=== PATIENT | female | born 1955 | race Two or more races ===

== ENCOUNTER → 2020-11-01 | Outpatient (CLI) | payer OTHER ==
[~2020-11-01] MED LIST: ASPI325T25 PO
[2020-11-01 09:11] LABS: Basophils # (auto) 0.1 10 ^3/uL (0-0.2); Basophils % (auto) 0.9 % (0.0-2.0); Eosinophils # (auto) 0.1 10 ^3/uL (0-0.8); Eosinophils % (auto) 1.4 % (0.0-7.0); Hematocrit 43.2 % (36.0-46.0); Hemoglobin 14.7 g/dL (12.2-16.2); Lymphocytes # (auto) 2.8 10 ^3/uL (0.4-5.4); Lymphocytes % (auto) 35.2 % (10.0-50.0); Mean Corpuscular Hemoglobin 30.3 pg (28.0-32.0); Mean Corpuscular Hgb Conc. 33.9 g/dL (32.0-36.0); Mean Corpuscular Volume 89.3 fL (80.0-100.0); Monocytes # (auto) 0.4 10 ^3/uL (0-1.3); Monocytes % (auto) 5.4 % (0.0-12.0); Neutrophils # (auto) 4.5 10 ^3/uL (1.6-8.6); Neutrophils % (auto) 57.1 % (37.0-80.0); Nucleated Red Blood Cells % 0.1 %; Platelet Count (auto) 290 10^3/uL (140-450); Red Blood Cells 4.84 10^6/uL (4.0-5.20); Red Cell Distribution Width 13.1 % (11.8-14.3); White Blood Cell 7.9 10^3/uL (4.4-10.8)
[2020-11-01 09:25] LABS: Urine Bacteria MOD /hpf (None Seen); Urine Blood Negative /uL (Negative); Urine Mucus FEW (None Seen); Urine Specific Gravity 1.018 (1.001-1.035); Urine WBC 13 /hpf (0 - 5)
[2020-11-01 09:56] LABS: Potassium 4.2 mmol/L (3.5-5.1)
[2020-11-01 10:08] LABS: Bilirubin, Total 0.6 mg/dL (0.2-1.0); Calcium 9.2 mg/dL (8.5-10.1); Total Protein 7.2 g/dL (6.4-8.2)
== END | disposition home or self-care (01) ==
LOC: LAB 08:53
PROVIDERS: ATTEND Internal Medicine
DX: E11.9 Type 2 diabetes mellitus without complications (principal); I10 Essential (primary) hypertension; E78.5 Hyperlipidemia, unspecified; R10.9 Unspecified abdominal pain
CPT/HCPCS: 36415; 80053; 80061; 81001; 82043; 83036; 85025

== ENCOUNTER → 2020-11-24 | Outpatient (CLI) | payer OTHER | END | disposition home or self-care (01) | LOC: LAB 09:22 | PROVIDERS: ATTEND Internal Medicine | DX: R13.10 Dysphagia, unspecified (principal) | CPT/HCPCS: 36415; 82565; 84520 ==

== ENCOUNTER → 2023-08-04 | Outpatient (CLI) | payer OTHER ==
[2023-08-04 08:50] LABS: Basophils # (auto) 0.1 10 ^3/uL (0-0.2); Basophils % (auto) 0.7 % (0.0-2.0); Eosinophils # (auto) 0.1 10 ^3/uL (0-0.8); Eosinophils % (auto) 1.6 % (0.0-7.0); Hematocrit 41.8 % (36.0-46.0); Hemoglobin 13.9 g/dL (12.2-16.2); Lymphocytes % (auto) 35.7 % (10.0-50.0); Mean Corpuscular Hemoglobin 29.8 pg (28.0-32.0); Mean Corpuscular Hgb Conc. 33.2 g/dL (32.0-36.0); Mean Corpuscular Volume 89.7 fL (80.0-100.0); Monocytes # (auto) 0.4 10 ^3/uL (0-1.3); Monocytes % (auto) 5.4 % (0.0-12.0); Neutrophils # (auto) 4.8 10 ^3/uL (1.6-8.6); Neutrophils % (auto) 56.6 % (37.0-80.0); Nucleated Red Blood Cells % 0.1 %; Red Blood Cells 4.66 10^6/uL (4.0-5.20); Red Cell Distribution Width 13.1 % (11.8-14.3); White Blood Cell 8.4 10^3/uL (4.4-10.8)
[2023-08-04 09:19] LABS: Urine Bacteria MOD /hpf (None Seen); Urine Blood 1+ /uL (Negative); Urine Clarity Clear (Clear); Urine Color Colorless (Yellow); Urine Mucus FEW (None Seen); Urine Protein, UAD Negative (Negative); Urine Specific Gravity 1.017 (1.001-1.035); Urine Urobilinogen Normal (Negative); Urine WBC 18 /hpf (0 - 5)
[2023-08-04 09:21] LABS: Creatinine, Urine 85.62 mg/dL (30.0-125.0)
[2023-08-04 09:25] LABS: Alanine Aminotransferase 21 U/L (7-40); Albumin 4.6 g/dL (3.2-4.8); Alkaline Phosphatase 81 U/L (46-116); Anion Gap 6 (5-15); Aspartate Aminotransferase 13 U/L (13-40); BUN/Creatinine Ratio 12.5 (10.0-20.0); Blood Urea Nitrogen 10 mg/dL (9-23); Calcium 10.1 mg/dL (8.5-10.1); Carbon Dioxide 27 mmol/L (20-30); Chloride 106 mmol/L (98-107); Cholesterol 188 mg/dL (< 200); Glucose 103 mg/dL (74-106); HDL Cholesterol 55 mg/dL (40-59); LDL Cholesterol 114 mg/dL (< 100); Potassium 4.5 mmol/L (3.5-5.1); Sodium 139 mmol/L (136-145); Triglycerides 189 mg/dL (< 150)
[2023-08-04 09:35] LABS: Bilirubin, Total 0.7 mg/dL (0.2-1.0)
[2023-08-04 10:31] LABS: Uric Acid 6.2 mg/dL (3.1-7.8)
== END | disposition home or self-care (01) ==
LOC: LAB 08:37
PROVIDERS: ATTEND Internal Medicine
DX: E78.5 Hyperlipidemia, unspecified (principal); R73.03 Prediabetes
CPT/HCPCS: 36415; 80053; 80061; 81001; 82043; 82570; 83036; 84550; 85025

== ENCOUNTER 2025-01-04 08:54 | Outpatient (CLI) | payer OTHER ==
[2025-01-04 09:06] LABS: Urine Bacteria None Seen /hpf (None Seen)
[2025-01-04 09:19] LABS: Urine Blood 1+ /uL (Negative); Urine Clarity Clear (Clear); Urine Color Light-Yellow (Yellow); Urine Mucus FEW (None Seen); Urine Protein, UAD Negative (Negative); Urine Specific Gravity 1.018 (1.001-1.035); Urine Squamous Epithelial Cell FEW /hpf (<5); Urine Urobilinogen Normal (Negative); Urine WBC 19 /HPF (0-5); Urine pH 5.5 (5.0-9.0)
[2025-01-04 09:21] LABS: Basophils # (auto) 0.1 10 ^3/uL (0-0.2); Basophils % (auto) 0.8 % (0.0-2.0); Eosinophils # (auto) 0.5 10 ^3/uL (0-0.8); Eosinophils % (auto) 6.7 % (0.0-7.0); Hematocrit 42.3 % (36.0-46.0); Hemoglobin 14.3 g/dL (12.2-16.2); Lymphocytes # (auto) 2.7 10 ^3/uL (0.4-5.4); Lymphocytes % (auto) 34.7 % (10.0-50.0); Mean Corpuscular Hemoglobin 30.1 pg (28.0-32.0); Mean Corpuscular Hgb Conc. 33.8 g/dL (32.0-36.0); Mean Corpuscular Volume 89.3 fL (80.0-100.0); Monocytes # (auto) 0.5 10 ^3/uL (0-1.3); Monocytes % (auto) 6.7 % (0.0-12.0); Neutrophils % (auto) 51.1 % (37.0-80.0); Nucleated Red Blood Cells % 0.1 %; Platelet Count (auto) 292 10^3/uL (140-450); Red Blood Cells 4.73 10^6/uL (4.0-5.20); Red Cell Distribution Width 13.3 % (11.8-14.3); White Blood Cell 7.9 10^3/uL (4.4-10.8)
[2025-01-04 09:35] LABS: Alanine Aminotransferase 20 U/L (7-40); Albumin 4.6 g/dL (3.2-4.8); Alkaline Phosphatase 91 U/L (46-116); Anion Gap 7 (5-15); Aspartate Aminotransferase 18 U/L (<34); BUN/Creatinine Ratio 18.1 (10.0-20.0); Blood Urea Nitrogen 15 mg/dL (9-23); Calcium 10.1 mg/dL (8.7-10.4); Carbon Dioxide 28 mmol/L (20-31); Chloride 106 mmol/L (98-107); Creatinine, Urine 106.06 mg/dL (30.0-125.0); Potassium 4.6 mmol/L (3.5-5.1); Sodium 141 mmol/L (136-145)
[2025-01-04 09:36] LABS: Bilirubin, Total 0.7 mg/dL (0.2-1.0); Cholesterol 189 mg/dL (< 200); HDL Cholesterol 54 mg/dL (40-59)
[2025-01-04 09:43] LABS: Glucose 127 mg/dL (74-106); LDL Cholesterol 117 mg/dL (< 100); Triglycerides 242 mg/dL (< 150)
== END 2025-01-04 17:00 | disposition home or self-care (01) ==
LOC: LAB 08:54
PROVIDERS: ATTEND Internal Medicine
DX: I10 Essential (primary) hypertension (principal); E78.5 Hyperlipidemia, unspecified; R73.03 Prediabetes; Z00.00 Encounter for general adult medical examination without abnormal findings
CPT/HCPCS: 36415; 80053; 80061; 81001; 82043; 82570; 83036; 84443; 85025

== ENCOUNTER 2025-01-04 10:17 | Outpatient (CLI) | payer OTHER | END 2025-01-04 17:00 | disposition home or self-care (01) | LOC: LAB 10:17 | PROVIDERS: ATTEND Internal Medicine | DX: I10 Essential (primary) hypertension (principal); E78.5 Hyperlipidemia, unspecified; R73.03 Prediabetes; Z12.11 Encounter for screening for malignant neoplasm of colon | CPT/HCPCS: 82270 ==

== ENCOUNTER 2025-01-25 12:36 | Inpatient (IN) | payer OTHER ==
[~2025-01-25] VITALS: Ht 165.1 cm; Wt 97.6 kg
[2025-01-25 13:20] VITALS: PULSE 82
--- NOTE | 2025-01-25 14:00 | ED.PDOC ---
History of Present Illness HPI Comments 69-year-old female presents with a chief complaint of headache and left-sided numbness x onset 0400 this morning. Patient mentions that starting at 0400 this morning she has been experiencing symptoms of high blood pressure. Patient mentions that her BP at home was in the 200s, BP in triage was 174/79. Patient reports a headache that is localized to the front and back of her head. Patient also has L eye redness that started along with the high blood pressure this morning. Patient states that she is also experiencing numbness to her left face since 0400 this morning, but denies any vision changes or focal weakness. 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 Family History Family History: Unknown Social History Smoker: Non-Smoker Alcohol: Denies ETOH Use Drugs: Denies Drug Use Lives In: Home Constitutional: denies: chills, diaphoresis, fatigue, fever, malaise, sweats, weakness, others EENTM: reports: eye redness; denies: blurred vision, double vision, ear bleeding, ear discharge, ear drainage, ear pain, ear ringing, eye pain, hearing loss, mouth pain, mouth swelling, nasal discharge, nose bleeding, nose conges tion, nose pain, photophobia, tearing, throat pain, throat swelling, voice changes, others Respiratory: denies: cough, hemoptysis, orthopnea, SOB at rest, shortness of breath, SOB with excertion, stridor, wheezing, others Cardiovascular: denies: chest pain, dizzy spells, diaphoresis, Dyspnea on exertion, edema, irregular heart beat, left arm pain, lightheadedness, palpitations, PND, syncope, others Gastrointestinal: denies: abdomen distended, abdominal pain, blood streaked bowels, constipated, diarrhea, dysphagia, difficulty swallowing, hematemesis, melena, nausea, poor appetite, poor fluid intake, rectal bleeding, rectal pain, vomiting, others Genitourinary: denies: abnormal vagina bleeding, burning, dyspareunia, dysuria, flank pain, frequency, hematuria, incontinence, pain, , vagina disc harge, urgency, others Neurological: reports: headache, left sided numbness; denies: dizziness, fainting, left sided weakness, numbness, paresthesia, pre-existing deficit, right sided numbness, right sided weakness, seizure, speech problems, tingling, tremors, weakness, others Musculoskeletal: denies: back pain, gout, joint pain, joint swelling, muscle pain, muscle stiffness, neck pain, others Integumetry: denies: bruises, change in color, change in hair/nails, dryness, laceration, lesions, lumps, rash, wounds, others Allergic/Immunocompromised: denies: Difficulty Healing, Frequent Infections, Hives, Itching, others Hematologic/Lymphatic: denies: anemia, blood clots, easy bleeding, easy bruising, swollen glands, others Endocrine: denies: excessive hunger, excessive sweating, excessive thirst, excessive urination, flushing, intolerance to cold, intolerance to heat, unexplained weight gain, unexplained weight loss, others Psychiatric: denies: anxiety, bipolar disorder, depression, hopeless, panic disorder, schizophrenia, sleepless, suicidal, others All Other Systems: Reviewed and Negative Physical Exam General Appearance: No Apparent Distress, Obese HEENT: PERRL/EOMI, Other (Pupils and face symmetric. Moist mucous membranes. Left eye subconjunctival hemorrhage.) Neck: Full Range of Motion, Non-Tender, Normal Inspection, Supple Respiratory: Lungs Clear, No Accessory Muscle Use, No Respiratory Distress, Normal Breath Sounds Cardiovascular: No Edema, No JVD, Regular Rate/Rhythm Breast Exam: Deferred Gastrointestinal: Non Tender, Soft Genitalia: Deferred Pelvic: Deferred Rectal: Deferred Extremities: Normal inspection, Normal range of motion, Non-tender, No pedal edema Neurologic: Alert (Oriented x4), No Motor Deficits, Normal Affect, Normal Mood, Other (Ambulatory. Subjective diminished light touch sensation over the left face.) Cerebellar Function: NOT DONE Reflexes: NOT DONE Skin: Dry, Normal Color, Warm Lymphatic: NOT DONE Was a procedure done? Was a procedure done?: No EKG EKG : Comments Sinus rhythm, rate 87, normal intervals, normal axis, normal QRS, no ST/T change. Differential Dx Considerations may include: CVA, TIA, hypertensive encephalopathy, hypertensive urgency/emergency, intracranial mass lesion, among others X-Ray, Labs, Meds, VS Vital Signs Date Time Temp Pulse Resp B/P (MAP) Pulse Ox O2 Delivery O2 Flow Rate FiO2 01/25/25 17:02 163/72 01/25/25 16:57 80 16 163/82 (109) 98 01/25/25 13:33 87 01/25/25 13:31 98.1 82 18 174/79 (110) 96 98.1 01/25/25 13:20 82 Room Air* 0 21 Lab Test 01/25/25 15:18 01/25/25 14:35 01/25/25 13:56 Range/Units Urine Color Light-yellow Yellow Urine Clarity Clear Clear Urine pH 6.0 5.0-9.0 Urine Specific [place] 1.023 1.001-1.035 Urine Protein Negative Negative Urine Ketones Negative Negative Urine Blood Trace H Negative /uL Urine Nitrite Negative Negative Urine Bilirubin Negative Negative Urine Urobilinogen Normal Negative mg/dL Urine Leukocyte Esterase 1+ Negative /uL Urine RBC 6 0 - 4 /hpf Urine Microscopic WBC 4 0-5 /HPF Urine Squamous Epithelial Cells Few <5 /hpf Urine Bacteria None seen None Seen /hpf Urine Glucose Normal Normal mg/dL Troponin I High Sensitivity < 3 L < 3 L </=34 ng/L White Blood Count 8.9 4.4-10.8 10^3/uL Red Blood Count 5.02 4.0-5.20 10^6/uL Hemoglobin 14.8 12.2-16.2 g/dL Hematocrit 44.9 36.0-46.0 % Mean Corpuscular Volume 89.5 80.0-100.0 fL Mean Corpuscular Hemoglobin 29.5 28.0-32.0 pg Mean Corpuscular Hemoglobin Concent 33.0 32.0-36.0 g/dL Red Cell Distribution Width 13.5 11.8-14.3 % Platelet Count 307 140-450 10^3/uL Mean Platelet Volume 7.2 6.9-10.8 fL Neutrophils (%) (Auto) 56.0 37.0-80.0 % Lymphocytes (%) (Auto) 31.4 10.0-50.0 % Monocytes (%) (Auto) 6.4 0.0-12.0 % Eosinophils (%) (Auto) 5.6 0.0-7.0 % Basophils (%) (Auto) 0.6 0.0-2.0 % Neutrophils # (Auto) 5.0 1.6-8.6 10 ^3/uL Lymphocytes # (Auto) 2.8 0.4-5.4 10 ^3/uL Monocytes # (Auto) 0.6 0-1.3 10 ^3/uL Eosinophils # (Auto) 0.5 0-0.8 10 ^3/uL Basophils # (Auto) 0.1 0-0.2 10 ^3/uL Nucleated Red Blood Cells 0.2 % Prothrombin Time 10.4 9.3-11.8 sec Prothrombin Time INR 0.98 0.9-1.15 Activated Partial Thromboplast Time 24.8 24.5-34.5 SEC Sodium Level 140 136-145 mmol/L Potassium Level 4.2 3.5-5.1 mmol/L Chloride Level 103 98-107 mmol/L Carbon Dioxide Level 28 20-31 mmol/L Anion Gap 9 5-15 Blood Urea Nitrogen 17 9-23 mg/dL Creatinine 0.78 0.550-1.02 mg/dL Glomerular Filtration Rate Calc 82 >90 mL/min BUN/Creatinine Ratio 21.8 H 10.0-20.0 Serum Glucose 153 H 74-106 mg/dL Calcium Level 9.9 8.7-10.4 mg/dL Total Bilirubin 0.5 0.2-1.0 mg/dL Aspartate Amino Transferase (AST) 22 13-40 U/L Alanine Aminotransferase (ALT) 30 7-40 U/L Alkaline Phosphatase 100 46-116 U/L B-Type Natriuretic Peptide 36.33 0-100 pg/mL Total Protein 6.9 5.7-8.2 g/dL Albumin 4.8 3.2-4.8 g/dL Current Medications Medications (Trade) Dose Ordered Sig/Rona Route Start Time Stop Time Status Last Admin Acetaminophen/ Hydrocodone Bitart (Manning 5/325MG Tab) 1 tab ONCE ONCE PO 01/25/25 17:05 01/25/25 17:06 DC 01/25/25 17:17 PROCEDURE(s): HWOCT - HEAD WITHOUT CONTRAST REASON: high bp headache ORDER NUMBER(s): [id number], ACCESSION NUMBER(s): [id number] CT HEAD WITHOUT CONTRAST INDICATION: high bp headache EXAM DATE: 01/25/2025 01:37 PM COMPARISON: None RADIATION DOSE: CTDIvol: 55 mGy, DLP: 1091 mGy*cm PROCEDURE: CT scans of the head were obtained from the vertex to the skull base. Sagittal and coronal reconstructions were provided. All CT scans at this medical facility are performed using dose modulation techniques as appropriate to a performed exam including the following: Automated exposure control was utilized; adjustment of the MA and/or KV according to patient size; and use of iterative reconstruction technique. FINDINGS: There is sulcal and ventricular prominence. The brainshows normal morphology and matt-white matter differentiation, without intracranial hemorrhage, extra-axial fluid collection, mass effect or acute large vessel infarct. The ventricles are normal in size. The basal cisterns are patent. The skull and visible facial bones are intact. The paranasal sinuses, mastoid air cells and middle ear cavities are well-aerated. The soft tissues of the scalp are unremarkable. IMPRESSION: No acute intracranial abnormality. EDURE(s): CXR2 - CHEST TWO VIEWS ROUTINE REASON: hi bp ORDER NUMBER(s): [id number], ACCESSION NUMBER(s): [id number] XY CHEST TWO VIEWS ROUTINE, HISTORY: hi bp COMPARISON: None None TECHNICAL DATA: 2 view of the chest was obtained. FINDINGS: Lines and tubes: None Cardiomediastinal silhouette: normal Pulmonary vasculature: normal Lung expansion: normal Lung airspace: normal Lung interstitium: normal Pleura: normal Pneumothorax: no Bones: Unremarkable Other: no IMPRESSION: No acute intrathoracic abnormality. ATED BY: KAM WAGNER MD DICTATED DATE/TIME: 01/25/25 1409 X-Ray, Labs, Meds, VS Comment 69-year-old female with a history of diabetes, hypertension, dyslipidemia presenting complaining of elevated blood pressure, headache, left eye subconjunctival hemorrhage and left facial numbness Vitals remarkable for BP 174/79 Exam remarkable for left subconjunctival hemorrhage. Subjective diminished light touch sensation left face Rhythm strip independently interpreted by me: Sinus rhythm, rate 87, no ectopy. CT head unremarkable Chest x-ray unremarkable CBC, CMP, BNP and 2 serial troponins unremarkable. UA abnormal consistent with possible UTI Patient treated with the following in the ED: Manning 5/325 mg for headache. Rocephin 1 g IV. Patient's blood pressure was in the 160s systolic on re-evaluation, so no additional blood pressure lowering medication was administered. On re-evaluation, there has been no new neurologic change. Vitals are otherwise stable. Plan is to admit the patient for brain MRI and neuro evaluation. Time of 1ST Reevaluation: 13:57 Reevaluation 1ST: Unchanged Patient Education/Counseling: Diagnosis, Treatment Family Education/Counseling: No Family Present SEPSIS Sepsis Screen Date sepsis recognized/suspect: Jan 25, 2025 Time Sepsis recognized/suspect: 1320 Recent Procedure: No On Antibiotic Therapy: No Respiratory Rate >20: No Heart Rate >90: No Temp<36 C (96.8 F) or >38.3 C: No SBP <90 or MAP <65 mmHG: No New Acute Mental Status Change: No Is the patient on CPAP, BIPAP,: No Physician Orders Chest Two Views Routine (01/25/25 13:34) Electrocardigram (01/25/25 13:34) Head Without Contrast (01/25/25 13:34) Ceftriaxone 1gm/50ml D5w (Rocephin) (01/25/25 17:15) Vital Signs Date Time Temp Pulse Resp B/P (MAP) Pulse Ox O2 Delivery O2 Flow Rate FiO2 01/25/25 17:02 163/72 01/25/25 16:57 80 16 163/82 (109) 98 01/25/25 13:33 87 01/25/25 13:31 98.1 82 18 174/79 (110) 96 98.1 01/25/25 13:20 82 Room Air* 0 21 Laboratory Tests Test 01/25/25 13:56 White Blood Count 8.9 10^3/uL (4.4-10.8) Medications Medications Dose Ordered Sig/Rona Route Start Time Stop Time Status Last Admin Dose Admin Acetaminophen/ Hydrocodone Bitart 1 tab ONCE ONCE PO 01/25/25 17:05 01/25/25 17:06 DC 01/25/25 17:17 Departure 1 Departure Time of Disposition: 16:30 Impression: Primary Impression: Hypertensive urgency Additional Impressions: Headache Qualified Codes: R51.9 - Headache, unspecified Left facial numbness UTI (urinary tract infection) Qualified Codes: N39.0 - Urinary tract infection, site not specified Disposition: ADMITTED INPATIENT Admit to: Tele Condition: Guarded Critical Care Note Critical Care Time?: No Stability Stability form required: No Heart Score Heart Score: Heart Score Response (Comments) Value History N/A 0 EKG N/A 0 Age N/A 0 Risk Factors N/A 0 Troponin N/A 0 Total 0 I personally scribed for MG ROMERO MD ([email or web address]) on 01/25/25 at 14:00. Electronically submitted by Drake Delgadillo ([email or web address]). MG ROMERO MD Jan 25, 2025 14:00
--- NOTE | 2025-01-25 14:07 | DVH ---
CT HEAD WITHOUT CONTRAST INDICATION: high bp headache EXAM DATE: 01/25/2025 01:37 PM COMPARISON: None RADIATION DOSE: CTDIvol: 55 mGy, DLP: 1091 mGy*cm PROCEDURE: CT scans of the head were obtained from the vertex to the skull base. Sagittal and coronal reconstructions were provided. All CT scans at this medical facility are performed using dose modulation techniques as appropriate t o a performed exam including the following: Automated exposure control was utilized; adjustment of th e MA and/or KV according to patient size; and use of iterative reconstruction technique. FINDINGS: There is sulcal and ventricular prominence. The brainshows normal morphology and matt-whi te matter differentiation, without intracranial hemorrhage, extra-axial fluid collection, mass effect or acute large vessel infarct. The ventricles are normal in size. The basal cisterns are patent. The skull and visible facial bones are intact. The paranasal sinuses, mastoid air cells and middle ear c avities are well-aerated. The soft tissues of the scalp are unremarkable. IMPRESSION: No acute intracranial abnormality.
--- NOTE | 2025-01-25 14:11 | DVH ---
XY CHEST TWO VIEWS ROUTINE, HISTORY: hi bp COMPARISON: None None TECHNICAL DATA: 2 view of the chest was obtained. FINDINGS: Lines and tubes: None Cardiomediastinal silhouette: normal Pulmonary vasculature: normal Lung expansion: normal Lung airspace: normal Lung interstitium: normal Pleura: normal Pneumothorax: no Bones: Unremarkable Other: no IMPRESSION: No acute intrathoracic abnormality.
[2025-01-25 14:13] LABS: Hematocrit 44.9 % (36.0-46.0); Hemoglobin 14.8 g/dL (12.2-16.2); Mean Corpuscular Hemoglobin 29.5 pg (28.0-32.0); Mean Corpuscular Volume 89.5 fL (80.0-100.0); Nucleated Red Blood Cells % 0.2 %
[2025-01-25 14:31] LABS: INR 0.98 (0.9-1.15); Partial Thromboplastin Time 24.8 SEC (24.5-34.5); Prothrombin Time 10.4 sec (9.3-11.8)
[2025-01-25 14:35] LABS: Alanine Aminotransferase 30 U/L (7-40); Albumin 4.8 g/dL (3.2-4.8); Alkaline Phosphatase 100 U/L (46-116); Anion Gap 9 (5-15); BUN/Creatinine Ratio 21.8 (10.0-20.0); Bilirubin, Total 0.5 mg/dL (0.2-1.0); Blood Urea Nitrogen 17 mg/dL (9-23); Calcium 9.9 mg/dL (8.7-10.4); Carbon Dioxide 28 mmol/L (20-31); Chloride 103 mmol/L (98-107); Potassium 4.2 mmol/L (3.5-5.1); Sodium 140 mmol/L (136-145); Total Protein 6.9 g/dL (5.7-8.2)
[2025-01-25 14:36] LABS: Glucose 153 mg/dL (74-106)
[2025-01-25 15:32] LABS: Urine Protein, UAD Negative (Negative)
[2025-01-25] MEDS: hydrALAZINE HCL 20 MG/ML VL IV ONE (17:02)
[2025-01-25] MEDS: HYDROcodone-ACET 5/325MG TAB PO ONE (17:17)
[2025-01-25] MEDS: cefTRIAXone 1GM/50ML D5W 50 ML IV ONE (18:05)
[2025-01-25] MEDS ORDERED: ACETAMINOPHEN 325 MG TAB PO PRN (20:00)
[2025-01-25] MEDS ORDERED: ONDANSETRON HCL 4 MG/2 ML VIAL IV PRN (20:00)
[2025-01-25] MEDS ORDERED: DEXTROSE (50%) 50ML SYRG IV PRN (20:00)
[2025-01-25 21:00] VITALS: BP 160/97; PULSE 78; RESP 18; TEMP 97.7; O2SAT 97
[2025-01-25 21:07] VITALS: PULSE 78; RESP 18; O2SAT 97
[2025-01-25] MEDS ORDERED: SIMV10TA20 PO (21:15)
[2025-01-25] MEDS ORDERED: ENAL1TAB47 PO (21:15)
[2025-01-25] MEDS ORDERED: METF-371 PO (21:15)
[2025-01-25 21:17] VITALS: BP 160/97; PULSE 78; RESP 0; TEMP 97.7; O2SAT 97
--- NOTE | 2025-01-25 21:38 | DVHHP2 ---
History of Present Illness Reason for Visit: Hypertension History of Present Illness 69-year-old female presents for evaluation of hypertension. Patient reports that since yesterday her blood pressure was running in the 200s. Today she developed dizziness with left facial numbness and occipital headache. Patient states the facial numbness has subsided and has a mild headache. Denies unilateral weakness or slurred speech. No blurred vision. No chest pain. Past Medical History Diabetes mellitus, dyslipidemia, hypertension, cancer Past Surgical History Hysterectomy, cholecystectomy Family History Noncontributory Smoke: No ALCOHOL: none Drugs: None Lives: with Family Review of Systems Review of Systems Review of systems are currently negative otherwise addressed in HPI. Allergies: Coded Allergies: NO KNOWN ALLERGIES (Unverified , 11/24/15) Medications Current Medications Medications Dose Ordered Sig/Rona Route Start Time Stop Time Status Last Admin Dose Admin Clonidine HCl 0.1 mg Q6HP PRN PO 01/25/25 20:00 Enalapril Maleate 20 mg DAILY PO 01/26/25 10:00 Ceftriaxone Sodium 50 ml @ 100 mls/hr DAILY@09 IV 01/26/25 09:00 Diagnostic Test (Pha) 1 strip ACHS 01/25/25 22:00 Insulin Human Regular ACHS SC 01/25/25 22:00 Dextrose 50 ml UD PRN IV 01/25/25 20:00 Ondansetron HCl 4 mg Q4HP PRN IV 01/25/25 20:00 Enoxaparin Sodium 40 mg DAILY SC 01/26/25 10:00 Acetaminophen 650 mg Q6HP PRN PO 01/25/25 20:00 Exam Vital Signs Vital Signs Date Time Temp Pulse Resp B/P (MAP) Pulse Ox O2 Delivery O2 Flow Rate FiO2 01/25/25 21:17 97.7 78 0 160/97 (118) 97 97.7 01/25/25 19:12 Room Air 01/25/25 13:20 0 21 Exam Gen: 69-year-old female in mild distress Skin: Warm, dry, normal color and texture, no rash. HEENT: Normocephalic atraumatic, mucous membranes moist and pink. Neck: Cervical and supraclavicular nodes normal without enlargement, trachea is midline, thyroid gland is normal without masses. Pulmonary: Clear to auscultation and percussion bilaterally. Cardiac: Regular rate and rhythm. No murmur Abdomen: Soft, nontender, nondistended, bowel sounds present all 4 quadrants, no guarding, no rigidity, no organomegaly. Extremities: No cyanosis, clubbing, no edema Neuro: Cranial nerves II through XII grossly intact, normal affect and speech, no focal motor deficits. Labs/Xrays ORDERING PHYSICIAN: MG ROMERO MD PROCEDURE(s): CXR2 - CHEST TWO VIEWS ROUTINE REASON: hi bp ORDER NUMBER(s): [id number], ACCESSION NUMBER(s): [id number] XY CHEST TWO VIEWS ROUTINE, HISTORY: hi bp COMPARISON: None None TECHNICAL DATA: 2 view of the chest was obtained. FINDINGS: Lines and tubes: None Cardiomediastinal silhouette: normal Pulmonary vasculature: normal Lung expansion: normal Lung airspace: normal Lung interstitium: normal Pleura: normal Pneumothorax: no Bones: Unremarkable Other: no IMPRESSION: No acute intrathoracic abnormality. RING PHYSICIAN: MG ROMERO MD PROCEDURE(s): HWOCT - HEAD WITHOUT CONTRAST REASON: high bp headache ORDER NUMBER(s): [id number], ACCESSION NUMBER(s): [id number] CT HEAD WITHOUT CONTRAST INDICATION: high bp headache EXAM DATE: 01/25/2025 01:37 PM COMPARISON: None RADIATION DOSE: CTDIvol: 55 mGy, DLP: 1091 mGy*cm PROCEDURE: CT scans of the head were obtained from the vertex to the skull base. Sagittal and coronal reconstructions were provided. All CT scans at this medical facility are performed using dose modulation techniques as appropriate to a performed exam including the following: Automated exposure control was utilized; adjustment of the MA and/or KV according to patient size; and use of iterative reconstruction technique. FINDINGS: There is sulcal and ventricular prominence. The brainshows normal morphology and matt-white matter differentiation, without intracranial hemorrhage, extra-axial fluid collection, mass effect or acute large vessel infarct. The ventricles are normal in size. The basal cisterns are patent. The skull and visible facial bones are intact. The paranasal sinuses, mastoid air cells and middle ear cavities are well-aerated. The soft tissues of the scalp are unremarkable. IMPRESSION: No acute intracranial abnormality. Labs Test 01/25/25 15:18 01/25/25 14:35 01/25/25 13:56 Range/Units Urine Color Light-yellow Yellow Urine Clarity Clear Clear Urine pH 6.0 5.0-9.0 Urine Specific [place] 1.023 1.001-1.035 Urine Protein Negative Negative Urine Ketones Negative Negative Urine Blood Trace H Negative /uL Urine Nitrite Negative Negative Urine Bilirubin Negative Negative Urine Urobilinogen Normal Negative mg/dL Urine Leukocyte Esterase 1+ Negative /uL Urine RBC 6 0 - 4 /hpf Urine Microscopic WBC 4 0-5 /HPF Urine Squamous Epithelial Cells Few <5 /hpf Urine Bacteria None seen None Seen /hpf Urine Glucose Normal Normal mg/dL Troponin I High Sensitivity < 3 L </=34 ng/L White Blood Count 8.9 4.4-10.8 10^3/uL Red Blood Count 5.02 4.0-5.20 10^6/uL Hemoglobin 14.8 12.2-16.2 g/dL Hematocrit 44.9 36.0-46.0 % Mean Corpuscular Volume 89.5 80.0-100.0 fL Mean Corpuscular Hemoglobin 29.5 28.0-32.0 pg Mean Corpuscular Hemoglobin Concent 33.0 32.0-36.0 g/dL Red Cell Distribution Width 13.5 11.8-14.3 % Platelet Count 307 140-450 10^3/uL Mean Platelet Volume 7.2 6.9-10.8 fL Neutrophils (%) (Auto) 56.0 37.0-80.0 % Lymphocytes (%) (Auto) 31.4 10.0-50.0 % Monocytes (%) (Auto) 6.4 0.0-12.0 % Eosinophils (%) (Auto) 5.6 0.0-7.0 % Basophils (%) (Auto) 0.6 0.0-2.0 % Neutrophils # (Auto) 5.0 1.6-8.6 10 ^3/uL Lymphocytes # (Auto) 2.8 0.4-5.4 10 ^3/uL Monocytes # (Auto) 0.6 0-1.3 10 ^3/uL Eosinophils # (Auto) 0.5 0-0.8 10 ^3/uL Basophils # (Auto) 0.1 0-0.2 10 ^3/uL Nucleated Red Blood Cells 0.2 % Prothrombin Time 10.4 9.3-11.8 sec Prothrombin Time INR 0.98 0.9-1.15 Activated Partial Thromboplast Time 24.8 24.5-34.5 SEC Sodium Level 140 136-145 mmol/L Potassium Level 4.2 3.5-5.1 mmol/L Chloride Level 103 98-107 mmol/L Carbon Dioxide Level 28 20-31 mmol/L Anion Gap 9 5-15 Blood Urea Nitrogen 17 9-23 mg/dL Creatinine 0.78 0.550-1.02 mg/dL Glomerular Filtration Rate Calc 82 >90 mL/min BUN/Creatinine Ratio 21.8 H 10.0-20.0 Serum Glucose 153 H 74-106 mg/dL Calcium Level 9.9 8.7-10.4 mg/dL Total Bilirubin 0.5 0.2-1.0 mg/dL Aspartate Amino Transferase (AST) 22 13-40 U/L Alanine Aminotransferase (ALT) 30 7-40 U/L Alkaline Phosphatase 100 46-116 U/L B-Type Natriuretic Peptide 36.33 0-100 pg/mL Total Protein 6.9 5.7-8.2 g/dL Albumin 4.8 3.2-4.8 g/dL Thyroid Stimulating Hormone (TSH) 1.59 0.55-4.78 uIU/mL SEPSIS Sepsis Screen Date sepsis recognized/suspect: Jan 25, 2025 Time Sepsis recognized/suspect: 1912 Recent Procedure: No On Antibiotic Therapy: No Respiratory Rate >20: No Heart Rate >90: No Temp<36 C (96.8 F) or >38.3 C: No SBP <90 or MAP <65 mmHG: No New Acute Mental Status Change: No Is the patient on CPAP, BIPAP,: No Physician Orders Chest Two Views Routine (01/25/25 13:34) Electrocardigram (01/25/25 13:34) Head Without Contrast (01/25/25 13:34) Clonidine Hcl Tablet (Catapres Tablet) (01/25/25 20:00) Enalapril Tablet (Vasotec Tablet) (01/26/25 10:00) Ceftriaxone 1gm/50ml D5w (Rocephin) (01/26/25 09:00) Basic Metabolic Panel (01/26/25 04:00) Glucose Blood (Accu-Chek Comfort Curve T (01/25/25 22:00) Insulin R (Human) (Insulin R) (01/25/25 22:00) Dextrose 50% Syringe (01/25/25 20:00) Admit (01/25/25 19:57) Ondansetron Hcl (Zofran) (01/25/25 20:00) Enoxaparin Sodium (Lovenox) (01/26/25 10:00) Cardiac Diet-2gna,Lofat,Lochol (01/26/25 Breakfast) Echo 2d Mode Cardiac Dop (01/25/25 19:57) Condition: Stable (01/25/25 19:57) Acetaminophen Tablet (Tylenol Tablet) (01/25/25 20:00) Bedrest With Bathroom Privileg (01/25/25 19:57) Hepatitis B Surface Antigen (01/26/25 04:00) Hepatitis C Antibody (01/26/25 04:00) * Tax Agent Consult (01/25/25 ) Vital Signs Date Time Temp Pulse Resp B/P (MAP) Pulse Ox O2 Delivery O2 Flow Rate FiO2 01/25/25 21:17 97.7 78 0 160/97 (118) 97 97.7 01/25/25 21:00 97.7 78 18 160/97 (118) 97 97.7 01/25/25 19:12 76 20 96 Room Air 01/25/25 19:12 98.3 76 20 155/81 (105) 96 98.3 01/25/25 17:02 163/72 01/25/25 16:57 80 16 163/82 (109) 98 Laboratory Tests Test 01/25/25 13:56 White Blood Count 8.9 10^3/uL (4.4-10.8) Medications Medications Dose Ordered Sig/Rona Route Start Time Stop Time Status Last Admin Dose Admin Acetaminophen/ Hydrocodone Bitart 1 tab ONCE ONCE PO 01/25/25 17:05 01/25/25 17:06 DC 01/25/25 17:17 1 TAB Ceftriaxone Sodium 50 ml @ 100 mls/hr ONCE ONCE IV 01/25/25 17:15 01/25/25 17:58 DC 01/25/25 18:05 100 MLS/HR Assessment/Plan Assessment/Plan Assessment Hypertensive crisis Diabetes mellitus UTI Left corneal hemorrhage Plan Admit the patient to Med surge to the hospitalist Echocardiogram pending Prn antihypertensives Resume home medications Continue treatment per orders. Plan discussed with: Patient My Orders Orders - VERONICA DELGADO Procedure Category Date Status Time Clonidine Hcl Tablet PHA 01/25/25 In Process (Catapres Tablet) 20:00 Enalapril Tablet PHA 01/26/25 In Process (Vasotec Tablet) 10:00 Ceftriaxone 1gm/50ml PHA 01/26/25 In Process D5w (Rocephin) 09:00 Basic Metabolic Panel LAB 01/26/25 Verified 04:00 Glucose Blood PHA 01/25/25 In Process (Accu-Chek Comfort 22:00 Insulin R (Human) PHA 01/25/25 In Process (Insulin R) 22:00 Dextrose 50% Syringe PHA 01/25/25 In Process 20:00 Admit ADMIT 01/25/25 Transmitted 19:57 Ondansetron Hcl PHA 01/25/25 In Process (Zofran) 20:00 Enoxaparin Sodium PHA 01/26/25 In Process (Lovenox) 10:00 Cardiac DIET 01/26/25 Transmitted Diet-2gna,Lofat,Lochol Breakfast Echo 2d Mode Cardiac US 01/25/25 Logged DOP 19:57 Condition: Stable SHMUEL 01/25/25 In Process 19:57 Acetaminophen Tablet PHA 01/25/25 In Process (Tylenol Tablet) 20:00 Bedrest With Bathroom SHMUEL 01/25/25 In Process Privileg 19:57 Hepatitis B Surface LAB 01/26/25 Verified Antigen 04:00 Hepatitis C Antibody LAB 01/26/25 Verified 04:00 * Tax Agent CONS 01/25/25 Transmitted Consult Date of Service: Jan 25, 2025 Billing Provider: VERONICA DELGADO Common Visit Codes: [id number] INP/OBS CARE (HIGH) VERONICA DELGADO Jan 25, 2025 21:38
[2025-01-25 22:08] LABS: Cholesterol 166 mg/dL (< 200); HDL Cholesterol 57 mg/dL (40-59)
[2025-01-25 22:13] LABS: Triglycerides 264 mg/dL (< 150)
[2025-01-25] MEDS: InsuLIN REG 1unit/0.01ml Soln (100units/ml) SC SCH (22:20)
[2025-01-25] MEDS: ACCU-CHEK COMFORT CURVE STRIP VI SCH (22:21)
[2025-01-26] VITALS (8 sets, daily range): BP systolic 110–138; BP diastolic 48–76; PULSE 74–85; RESP 16–18; TEMP 97.3–98.2; O2SAT 91–96
[2025-01-26 07:34] LABS: Chloride 104 mmol/L (98-107); Potassium 4.0 mmol/L (3.5-5.1); Sodium 139 mmol/L (136-145)
[2025-01-26 07:35] LABS: Anion Gap 9 (5-15); Calcium 10.0 mg/dL (8.7-10.4); Carbon Dioxide 26 mmol/L (20-31)
[2025-01-26 07:40] LABS: BUN/Creatinine Ratio 23.1 (10.0-20.0); Blood Urea Nitrogen 18 mg/dL (9-23)
[2025-01-26 07:43] LABS: Glucose 129 mg/dL (74-106)
[2025-01-26] MEDS: cefTRIAXone 1GM/50ML D5W 50 ML IV SCH (09:00)
--- NOTE | 2025-01-26 09:35 | ECG ---
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
[2025-01-26 10:02] LABS: Hepatitis B Surface Antigen Negative (Negative)
[2025-01-26 10:36] LABS: Hepatitis C Antibody Negative (Negative)
[2025-01-26] MEDS: ENALAPRIL MALEATE 10 MG TAB PO SCH (10:36)
[2025-01-26] MEDS: ENOXAPARIN SOD 40 MG/0.4 ML SYRINGE SC SCH (10:37)
[2025-01-26] MEDS: LORazepam 2MG/ML-1ML VIAL IV ONE (15:32)
--- NOTE | 2025-01-26 15:33 | DVHPN2 ---
Subjective Patient denies any symptoms at this time Reviewed: Care Plan, H&P, Labs, Medications Changes from previous H/P or p: No Changes General: Per HPI Objective Vitals Vital Signs Date Time Temp Pulse Resp B/P (MAP) Pulse Ox O2 Delivery O2 Flow Rate FiO2 01/26/25 13:00 97.9 75 17 110/68 (82) 91 97.9 01/26/25 08:30 Room Air* 0 21 Intake/Output Intake and Output 01/26/25 07:00 Intake Total 250 ml Balance 250 ml Intake Oral 200 ml IV Total 50 ml # Voids 1 General Appearance: Alert, Oriented X3, Cooperative, No acute distress HEENT: PERRLA, Other (Left conjunctival hemorrhage) Lungs: Clear to auscultation, Normal air movement Cardiovascular: Normal S1, Normal S2 Abdomen: Normal bowel sounds, Soft, No tenderness, No hepatospenomegaly, No masses Musculoskeletal: Normal sensory function, Normal motor function Skin: Dry, Intact Psych/Mental Status: Mood NL Medications Current Medications Medications Dose Ordered Sig/Rona Route Start Time Stop Time Status Last Admin Dose Admin Clonidine HCl 0.1 mg Q6HP PRN PO 01/25/25 20:00 Enalapril Maleate 20 mg DAILY PO 01/26/25 10:00 01/26/25 10:36 20 MG Ceftriaxone Sodium 50 ml @ 100 mls/hr DAILY@09 IV 01/26/25 09:00 01/26/25 09:00 100 MLS/HR Diagnostic Test (Pha) 1 strip ACHS 01/25/25 22:00 01/26/25 11:30 1 STRIP Insulin Human Regular ACHS SC 01/25/25 22:00 01/26/25 12:22 2 UNITS Dextrose 50 ml UD PRN IV 01/25/25 20:00 Ondansetron HCl 4 mg Q4HP PRN IV 01/25/25 20:00 Enoxaparin Sodium 40 mg DAILY SC 01/26/25 10:00 01/26/25 10:37 40 MG Acetaminophen 650 mg Q6HP PRN PO 01/25/25 20:00 Laboratory Results Laboratory Tests 01/25/25 13:56 01/26/25 05:42 Chemistry Test 01/26/25 05:42 Calcium Level 10.0 mg/dL (8.7-10.4) Urinalysis Test 01/25/25 15:18 Urine Color Light-yellow (Yellow) Urine Clarity Clear (Clear) Urine pH 6.0 (5.0-9.0) Urine Specific [place] 1.023 (1.001-1.035) Urine Protein Negative (Negative) Urine Ketones Negative (Negative) Urine Blood Trace /uL (Negative) H Urine Nitrite Negative (Negative) Urine Bilirubin Negative (Negative) Urine Urobilinogen Normal mg/dL (Negative) Urine Leukocyte Esterase 1+ /uL (Negative) Urine RBC 6 /hpf (0 - 4) Urine Microscopic WBC 4 /HPF (0-5) Urine Squamous Epithelial Cells Few /hpf (<5) Urine Bacteria None seen /hpf (None Seen) Urine Glucose Normal mg/dL (Normal) Labs and/or images reviewed: Labs reviewed by me, Image(s) reviewed by me Assessment/Plan Assessment/Plan Impression: -hypertensive crisis -rule out CVA -diabetes mellitus -dyslipidemia -primary hypertension -left conjunctival hemorrhage Plan: -CT scan of the head negative for any acute intracranial pathology -MRI of the brain -regular insulin sliding scale -echocardiogram, pending -continue current antihypertensives, statin -reassess for discharge in a.m. Total time spent with patient discussing and formulating plan of care: 35 minutes. This medical document was created using an electronic medical record system with [employer] dictation system. Although this document has been carefully reviewed, there may still be some phonetic and typographical errors. These areas are purely typographical due to imperfections of the software programs, and do not reflect any compromise in the patient's medical care. Plan discussed with: Patient, Other (RN) My Orders Orders - ALICJA ANGULO NP Procedure Category Date Status Time Brain Head Wo Contrast MRI 01/26/25 Logged 14:14 Date of Service: Jan 26, 2025 Billing Provider: PRUDENCE VELASQUEZ Common Visit Codes: 47550-PLYVONCGJP INP/OBS CARE(HIGH) ALICJA ANGULO NP Jan 26, 2025 15:33
--- NOTE | 2025-01-26 16:36 | DVH ---
PROCEDURE: MRI BRAIN HEAD WO CONTRAST Indication: rule out CVA COMPARISON: None TECHNIQUE: Multiplanar multisequence images of the brain are obtained. FINDINGS: There is no abnormal diffusion restriction. There are mild periventricular and subcortical white cameron er T2 and FLAIR hyperintense changes. There is no intracranial hemorrhage. No extra-axial fluid colle ction, mass effect or midline shift. The ventricles are midline and normal in size. The cisterns are patent. Normal intracranial flow voids are preserved. No abnormal susceptibility signal. The sinuses and mastoids are well pneumatized. The visualized orbits are unremarkable. IMPRESSION: No acute cerebrovascular ischemia. Mild chronic microvascular ischemic changes.
[2025-01-27 01:00] VITALS: BP 143/76; PULSE 90; RESP 18; TEMP 98; O2SAT 93
[2025-01-27 05:00] VITALS: BP 100/62; PULSE 80; RESP 18; TEMP 97.7; O2SAT 97
[2025-01-27 08:00] VITALS: BP 127/78; PULSE 75; RESP 18; TEMP 98.1; O2SAT 94
--- NOTE | 2025-01-27 11:06 | DVHDS2 ---
Discharge Summary Date of Admission Jan 25, 2025 at 19:57 Date of Discharge: Jan 27, 2025 Admitting Diagnosis Hypertensive crisis Labs/Diagnostic Data: Laboratory Results Test 01/27/25 06:20 01/26/25 05:42 01/25/25 15:18 01/25/25 14:35 POC Glucose 160 mg/dl (70-106) Sodium Level 139 mmol/L (136-145) Potassium Level 4.0 mmol/L (3.5-5.1) Chloride Level 104 mmol/L (98-107) Carbon Dioxide Level 26 mmol/L (20-31) Anion Gap 9 (5-15) Blood Urea Nitrogen 18 mg/dL (9-23) Creatinine 0.78 mg/dL (0.550-1.02) Glomerular Filtration Rate Calc 82 mL/min (>90) BUN/Creatinine Ratio 23.1 (10.0-20.0) Serum Glucose 129 mg/dL (74-106) Calcium Level 10.0 mg/dL (8.7-10.4) Hepatitis B Surface Antigen Negative (Negative) Hepatitis C Antibody Negative (Negative) Urine Color Light-yellow (Yellow) Urine Clarity Clear (Clear) Urine pH 6.0 (5.0-9.0) Urine Specific [place] 1.023 (1.001-1.035) Urine Protein Negative (Negative) Urine Ketones Negative (Negative) Urine Blood Trace /uL (Negative) Urine Nitrite Negative (Negative) Urine Bilirubin Negative (Negative) Urine Urobilinogen Normal mg/dL (Negative) Urine Leukocyte Esterase 1+ /uL (Negative) Urine RBC 6 /hpf (0 - 4) Urine Microscopic WBC 4 /HPF (0-5) Urine Squamous Epithelial Cells Few /hpf (<5) Urine Bacteria None seen /hpf (None Seen) Urine Glucose Normal mg/dL (Normal) Troponin I High Sensitivity < 3 ng/L (</=34) Triglycerides Level 264 mg/dL (< 150) Cholesterol Level 166 mg/dL (< 200) LDL Cholesterol 87 mg/dL (< 100) HDL Cholesterol 57 mg/dL (40-59) Test 01/25/25 13:56 White Blood Count 8.9 10^3/uL (4.4-10.8) Red Blood Count 5.02 10^6/uL (4.0-5.20) Hemoglobin 14.8 g/dL (12.2-16.2) Hematocrit 44.9 % (36.0-46.0) Mean Corpuscular Volume 89.5 fL (80.0-100.0) Mean Corpuscular Hemoglobin 29.5 pg (28.0-32.0) Mean Corpuscular Hemoglobin Concent 33.0 g/dL (32.0-36.0) Red Cell Distribution Width 13.5 % (11.8-14.3) Platelet Count 307 10^3/uL (140-450) Mean Platelet Volume 7.2 fL (6.9-10.8) Neutrophils (%) (Auto) 56.0 % (37.0-80.0) Lymphocytes (%) (Auto) 31.4 % (10.0-50.0) Monocytes (%) (Auto) 6.4 % (0.0-12.0) Eosinophils (%) (Auto) 5.6 % (0.0-7.0) Basophils (%) (Auto) 0.6 % (0.0-2.0) Neutrophils # (Auto) 5.0 10 ^3/uL (1.6-8.6) Lymphocytes # (Auto) 2.8 10 ^3/uL (0.4-5.4) Monocytes # (Auto) 0.6 10 ^3/uL (0-1.3) Eosinophils # (Auto) 0.5 10 ^3/uL (0-0.8) Basophils # (Auto) 0.1 10 ^3/uL (0-0.2) Nucleated Red Blood Cells 0.2 % Prothrombin Time 10.4 sec (9.3-11.8) Prothrombin Time INR 0.98 (0.9-1.15) Activated Partial Thromboplast Time 24.8 SEC (24.5-34.5) Total Bilirubin 0.5 mg/dL (0.2-1.0) Aspartate Amino Transferase (AST) 22 U/L (13-40) Alanine Aminotransferase (ALT) 30 U/L (7-40) Alkaline Phosphatase 100 U/L (46-116) B-Type Natriuretic Peptide 36.33 pg/mL (0-100) Total Protein 6.9 g/dL (5.7-8.2) Albumin 4.8 g/dL (3.2-4.8) Thyroid Stimulating Hormone (TSH) 1.59 uIU/mL (0.55-4.78) Other Laboratory Tests 01/26/25 05:42 01/25/25 13:56 Brief Hx & Hospital Course: History of Present Illness 69-year-old female presents for evaluation of hypertension. Patient reports that since yesterday her blood pressure was running in the 200s. Today she developed dizziness with left facial numbness and occipital headache. Patient states the facial numbness has subsided and has a mild headache. Denies unilateral weakness or slurred speech. No blurred vision. No chest pain. Course of hospitalization: Patient's symptoms have resolved. CT and MRI of the brain negative for any acute pathology. Patient noted to have conjunctiva hemorrhaging, without any blurry vision. Discussed with the patient's family that this can happen with elevated blood pressure. No further treatment is required. Patient was also noted to have mild UTI for which patient was treated with IV Rocephin with antibiotic course to be stopped with the time of discharge. Patient was instructed to follow up with her PCP in week. She is to continue all previous home medications. All questions answered to both the patient and daughter. Physical examination General: Alert and Oriented x3. No acute distress. Well-nourished. Eyes: EOMI. Anicteric. HENT: Moist mucous membranes. Lungs: Clear to auscultation bilaterally. No accessory muscle use. Cardiovascular: Regular rate and rhythm. No murmur. No JVD. Abdomen: Soft, non-tender and non-distended. No palpable masses. Extremities: No edema. Non-tender. Skin: No rashes or lesions. Warm. Neurologic: No focal neurological deficits. CN II-XII grossly intact, but not individually tested. Psychiatric: Cooperative. Appropriate mood and affect. Total time spent with patient discussing and formulating plan of care: 35 minutes. This medical document was created using an electronic medical record system with [employer] dictation system. Although this document has been carefully reviewed, there may still be some phonetic and typographical errors. These areas are purely typographical due to imperfections of the software programs, and do not reflect any compromise in the patient's medical care. Condition at Discharge: Fair Final Diagnosis/Problems List Hypertensive crisis Secondary diagnosis: -ruled out CVA -diabetes mellitus -dyslipidemia -primary hypertension -left conjunctival hemorrhage Discharge Disposition: Home Discharge Instruct/Medications Diet: Consistent carbohydrate, Cardiac 2g Na,low cholest Activity: No Restrictions, As Tolerated Follow Up/Referral: Follow up with PCP, Dr. Kimble Medications: Continue all previous home medications Scheduled Aspirin (Aspirin Ec), 81 MG PO DAILY, (Reported) Enalapril Maleate (Enalapril Maleate), 1 TAB PO DAILY, (Reported) Simvastatin (Simvastatin), 10 MG PO DAILY, (Reported) Miscellaneous Medications Metformin Hydrochloride (Metformin Hcl), 1 TAB PO, (Reported) 36 Discharge Statement: "Patient was advised to return to the ER or call 911 if any headaches, dizziness, shortness of breath, chest pain, abdominal pain, bleeding, fevers, or worsening of medical condition. Patient was counseled about treatment plan, medications, possible side effects, patientverbalized understanding. All questions were answered to the best of my ability. This discharge took greater then 30 minutes in planning, reviewing documentation, counseling the patient, and discussing with other team members." ASSESSMENT ASSESSMENT Assessment Hypertensive crisis Date of Service: Jan 27, 2025 Billing Provider: ALICJA ANGULO NP Common Visit Codes: 32336-TOE/OBS DISCH DAY >30min ALICJA ANGULO NP Jan 27, 2025 11:06
[2025-01-27 12:54] VITALS: BP 138/85; PULSE 84; RESP 20; TEMP 97.9; O2SAT 95
[2025-01-27 12:59] VITALS: BP 127/78; TEMP 36.6
--- NOTE | 2025-01-27 17:56 | DVHSR ---
APPROVED REPORT EXAM: Two-dimensional and M-mode echocardiogram with Doppler and color Doppler. Blood Pressure: 122/76 mmHg INDICATION ef RISK FACTORS Obesity: Height: 5'5, Weight: 215 DIMENSIONS LVDd3.8 (3.8-5.7cm)LA (2D)3.4 (1.9-4.0cm)Aortic Root3.1 (2.0-3.7cm) LVDs2.6 (2.5-4.0cm)LA (MM) (1.9-4.0cm)Aortic Cusp Exc1.6 (1.5-2.0cm) EF (%) 60.0 (55-70%)Rt. Atrium2.7 (1.9-4.0cm)Asc. Aorta cm IVSd1.1 (0.7-1.1cm)RV (D)2.7 (1.8-2.4cm) PWd1.1 (0.7-1.1cm) Mitral Valve MitralMitral Stenosis E wave0.65m/sMV Mean GR.mmHg A wave1.19m/sMV Peak GR.mmHg E/A ratio0.52D MVAcm2 DECEL [id number] 1/2 [place] Aortic Valve Aortic ValveAortic Stenosis V11.15m/Carlita Mean GR.5mmHg V21.40m/Carlita Peak GR.8mmHg LVOT Diameter2.0 (1.8-2.4cm)Doppler AVA2.58cm2 Tricuspid Valve TR Velocity2.41m/s [id number] Other Information Technically limited study due to body habitus. Conclusion Sinus rhythm. Off axis views. Concentric LVH with left atrial enlargement. Mild mitral annular calcification. The aortic mitral and tricuspid are structurally normal. Left ventricular systolic function is preserved at 65% with normal RV function. Doppler is unremarkable. No pericardial effusion masses or vegetations.
== END 2025-01-27 13:29 | disposition home or self-care (01) | DRG 305 ==
LOC: ER 12:36 → OVERFLOW 19:57 → CENTRAL 21:06
PROVIDERS: ADMIT Nurse Practitioner Acute Care; ATTEND Nurse Practitioner Acute Care
DX: I16.9 Hypertensive crisis, unspecified (principal); N39.0 Urinary tract infection, site not specified; E11.9 Type 2 diabetes mellitus without complications; H11.32 Conjunctival hemorrhage, left eye; E78.5 Hyperlipidemia, unspecified; I10 Essential (primary) hypertension; Z90.710 Acquired absence of both cervix and uterus; Z90.49 Acquired absence of other specified parts of digestive tract
CPT/HCPCS: 36415; 70450; 70551; 71046; 80048; 80053; 80061; 81001; 82962; 83880; 84443; 84484; 85025; 85610; 85730; 86803; 87340; 93005; 93306; 96365; 96375; G0378; J1815